=== PATIENT | female | born 1995 | race African-American/Black ===

== ENCOUNTER 2016-11-03 08:25 | Emergency (ER) ==
--- NOTE | 2016-11-03 11:04 | PROVIDER DOCUMENTATION ---
HPI-EENT General - General Source: patient <Dejah Ruiz - Last Filed: 11/03/16 10:59> - General Source: patient - History of Present Illness-EENT General NT Location: reports: nose, throat Severity: reports: mild Onset/Duration: reports: abrupt, 2 days ago Timing: reports: still present Prearrival Treatment: Initiated no prearrival treatment Associated Symptoms: reports: cough, nasal congestion/drainage, sore throat Recently seen or treated by another doctor?: No - Nose Nose Problem Symptoms: other (congestion and drainage) - Throat/Dental Throat/Dental Problem Symptoms: reports: sore throat <Patricia Kerr - Last Filed: 11/03/16 11:34> - General Chief Complaint: Cold Symptoms Stated Complaint: COLD SX Time Seen by Provider: 11/03/16 10:32 Allergies/Adverse Reactions: Patient Allergies Allergy/AdvReac Type Severity Reaction Status Date / Time Penicillins AdvReac RASH Verified 05/11/15 12:22 Home Medications: Home Medication List Medication Instructions Recorded Confirmed Last Taken Type Acetaminophen/Chlorpheniramine 2 each PO Q4-6H PRN PRN #30 tablet 11/03/16 Unknown Rx [Coricidin Hbp Cold & Flu Tab] Benzonatate [Tessalon] 100 mg PO TID PRN PRN #20 capsule 11/03/16 Unknown Rx Famotidine [Pepcid] 20 mg PO DAILY #20 tablet 11/03/16 Unknown Rx Ibuprofen [Motrin] 800 mg PO Q8H PRN PRN #20 tablet 11/03/16 Unknown Rx - History of Present Illness-[facility] General Nature of Presenting Problem: 21 yo AAF presents to ED with cc of cough, nasal congestion and drainage, and sore throat. Pt denies any other symptoms. Upon arrival to ED, pt is in no apparent distress and appears nontoxic. (Patricia Kerr) Review of Systems - Adult - REVIEW OF SYSTEMS - ADULT Constitutional: reports: no symptoms reported. denies: chills, fever Eyes: reports: no symptoms reported. denies: blurred vision, double vision Ears, Nose, Mouth & Throat: reports: throat pain, other (nasal congestion and drainage) Cardiovascular: reports: no symptoms reported. denies: chest pain, heart murmur Respiratory: reports: cough Gastrointestinal: reports: no symptoms reported. denies: abdominal pain, diarrhea, nausea, vomiting Genitourinary: reports: no symptoms reported. denies: dysuria, discharge Musculoskeletal: reports: no symptoms reported. denies: bone pain, joint pain Integumentary: reports: no symptoms reported. denies: hives, itching Neurological: reports: no symptoms reported. denies: headache/migraines, numbness Psychiatric: reports: no symptoms reported. denies: anxiety, depression Endocrine: reports: no symptoms reported. denies: cold intolerance, heat intolerance Hematologic/Lymphatic: reports: no symptoms reported. denies: blood clots, low blood count Allergic/Immunologic: reports: no symptoms reported. denies: allergic reactions , allergic rhinitis, asthma All Other Systems: Reviewed and Negative <Patricia Kerr - Last Filed: 11/03/16 11:34> Past History - Adult - PAST MEDICAL HISTORY-ADULT Major Childhood Illnesses: reports: denies history Cardiovascular: reports: denies history Respiratory: reports: denies history Gastrointestinal: reports: denies history Obstetrical/Gynecological: reports: denies history Genitourinary: reports: denies history Musculoskeletal: reports: denies history Neurological: reports: denies history Endocrine/Immune: reports: denies history Other Conditions: reports: denies history - PRIOR SURGERIES/PROCEDURES Surgical/Procedure History: reports: tonsillectomy - IMMUNIZATION STATUS Childhood Immunizations: See Nurse Assessment Flu Vaccine: See Nurse Assessment <Dejah Ruiz - Last Filed: 11/03/16 10:59> - PAST MEDICAL HISTORY-ADULT Review of Records: reports: Old Records Reviewed, Nursing Assessment Review, Medications Reviewed - IMMUNIZATION STATUS Childhood Immunizations: See Nurse Assessment Flu Vaccine: See Nurse Assessment <Patricia Kerr - Last Filed: 11/03/16 11:34> Physical Exam- EENT - Physical Exam EENT Initial Vital Signs Reviewed: Yes General Appearance: appears well, alert, no apparent distress Eye Exam: bilateral eye: normal inspection, PERRL, EOMI Ear Exam: bilateral ear: auricle normal, canal normal, TM normal Nasal Exam: normal inspection Throat Exam: normal mouth inspection, pharynx normal Neck: non-tender, full range of motion, supple Respiratory: chest non-tender, lungs clear, normal breath sounds Cardiovascular: normal peripheral pulses, regular rate, rhythm Abdominal Exam: normal bowel sounds, non tender, soft Lymphatic: no adenopathy Back Exam: normal inspection, no CVA tenderness, no vertebral tenderness Extremity: normal range of motion, non-tender, normal gait Integumentary: normal color, normal turgor, warm/dry Neurologic: grossly normal, no motor/sensory deficits Psych/Mental Status: normal mood/affect, normal thought content, normal thought process, oriented x 3 <Patricia Kerr - Last Filed: 11/03/16 11:34> Progress <Dejah Ruiz - Last Filed: 11/03/16 10:59> <Patricia Kerr - Last Filed: 11/03/16 11:34> - PLAN OF CARE/RESULTS Progress/Plan/Lab Results: Vital Signs - 24 hr 11/03/16 11/03/16 08:31 11:13 Temperature 97.2 F L 98.3 F Pulse Rate 87 79 Respiratory 18 18 Rate Blood Pressure 162/88 117/80 O2 Sat by Pulse 100 99 Oximetry Orders Category Date Time Status DIRECT STREP PL Stat Lab 11/03/16 08:[address] Stat Lab 11/03/16 08:35 Completed Laboratory Tests 11/03/16 11/03/16 08:35 08:35 Influenza A (Rapid) NEGATIVE Influenza B (Rapid) NEGATIVE Group A Strep Rapid NEGATIVE (Patricia Kerr) Departure - Departure Time of Disposition Order: 10:59 Certified Medical Emergency: Emergent <Dejah Ruiz - Last Filed: 11/03/16 10:59> <Patricia Kerr - Last Filed: 11/03/16 11:34> - Departure DIAGNOSIS: URI (upper respiratory infection) Qualifiers: URI type: unspecified URI Qualified Code(s): J06.9 - Acute upper respiratory infection, unspecified Disposition: HOME 01 Condition: Stable Additional Instructions: You need to follow up with your primary care doctor or the free clinic to monitor your blood pressure, it was elevated today. ED Follow Up Instructions: You have been treated by a care provider in the Emergency Department. These instructions are being provided to you so you can have an understanding of how to care for yourself upon discharge. Upon discharge from the Emergency Department, you are responsible for making arrangements for follow-up care by a physician of your choice. Take all prescribed medications as directed. Return to the Emergency Department immediately for any new or worsening symptoms. You may call the Physician Referral phone number at [phone] to obtain a list of Physicians who are taking new patients. Prescriptions: Acetaminophen/Chlorpheniramine [Coricidin Hbp Cold & Flu Tab] 2 each PO Q4-6H PRN PRN #30 tablet PRN Reason: Cold Symptoms Ibuprofen [Motrin] 800 mg PO Q8H PRN PRN #20 tablet PRN Reason: inflammation Famotidine [Pepcid] 20 mg PO DAILY #20 tablet Benzonatate [Tessalon] 100 mg PO TID PRN PRN #20 capsule PRN Reason: Cough Referrals: None,PCP [Primary Care Provider] - [facility] [NON-STAFF] - Forms: Return to School/Parent Work Instructions: Ibuprofen tablets and capsules, Upper Respiratory Infection, Adult, [id number], Acetaminophen; Codeine tablets Attestation - Physician/ GEORGE Attestation Patient care was provided by Advanced Practice Provider:: Yes Advanced Practice Provider:: Dejah Ruiz Advanced Practice Provider documentation review:: The Mid-level provider documentation, treatment plan and medical decision making was reviewed by the physician who agrees with all treatment and medical decision making by the [facility]. <Dejah Ruiz - Last Filed: 11/03/16 10:59> - Scribe Verification/Attestation Scribe:: Patricia Kerr Acting as Scribe for:: Dejah Ruiz Scribe documention review:: This chart was documented by a scribe and accurately reflects the service the provider performed and the decisions made by the provider. - Physician/ GEORGE Attestation Patient care was provided by Advanced Practice Provider:: Yes Advanced Practice Provider:: Dejah Ruiz Advanced Practice Provider documentation review:: The Mid-level provider documentation, treatment plan and medical decision making was reviewed by the physician who agrees with all treatment and medical decision making by the [facility]. <Patricia Kerr - Last Filed: 11/03/16 11:34> Physician Attestation
[2016-11-03 11:14] VITALS: BP 117/80
== END 2016-11-03 11:25 | disposition home or self-care (01) ==
LOC: P.ED 08:25
DX: J06.9 Acute upper respiratory infection, unspecified (principal); R05 Cough; R09.81 Nasal congestion; J02.9 Acute pharyngitis, unspecified
CPT/HCPCS: 87081; 87430; 87804; 99283